=== PATIENT | female | born 1980 | race Caucasian/White ===

== ENCOUNTER 2016-12-28 15:04 | Observation (INO) | payer OTHER, BC ==
[2016-12-28] MEDS ORDERED: HYDROmorphone 1 MG/ML 1 ML SYRINGE IVP STA ×2 (15:26→16:51)
[2016-12-28] MEDS ORDERED: ONDANSETRON 4 MG/2 ML VIAL IVP STA (15:26)
[2016-12-28] MEDS ORDERED: SODIUM CHLORIDE 0.9% 500 ML IV STA (15:26)
[2016-12-28] MEDS: RX INFO: IV CONTRAST WAS GIVEN 1 EACH MISC MISCELLANE PRN ×2 (15:45→15:46)
[2016-12-28 16:03] LABS: Anisocytosis Slight; Basophils % (A) 0 %; CH 24.6; CHCM 30.6; Eosinophils # (A) 0.6 k/uL (0-0.7); Eosinophils % (A) 8 %; HCT 34.7 % (34.0-46.0); HDW 2.82; HGB 10.6 gm/dL (11.4-16.0); Hypochromasia Moderate; Luc # (Auto) 0.13; Luc % (Auto) 2; Lymphocytes # (A) 2.1 k/uL (1.0-4.8); Lymphocytes % (A) 26 %; MCH 24.6 pg (25.0-35.0); MCHC 30.5 g/dL (31.0-37.0); MCV 80.6 fL (80.0-100.0); Mean Platelet Volume 8.4; Monocytes # (A) 0.3 k/uL (0-1.0); Monocytes % (A) 4 %; Neutrophils # (A) 4.8 k/uL (1.3-7.7); Neutrophils % (A) 60 %; RDW 16.5 % (11.5-15.5); WBC 7.9 k/uL (3.8-10.6); WBC (Perox) 8.48
[2016-12-28 16:06] LABS: Appearance,Urine Cloudy (Clear); Bilirubin,Urine Negative (Negative); Glucose,Urine (UA) Negative (Negative); Ketones,Urine Negative (Negative); Leukocyte Esterase,Urine Negative (Negative); Mucus,Urine Few /hpf; Nitrite,Urine Negative (Negative); PH, Urine 5.5 (5.0-8.0); Particle Count 14486; Protein,Urine 1+ (Negative); RBC,Urine 2 /hpf (0-5); Specific Gravity,Urine 1.019 (1.001-1.035); Squamous Epithelial Cell,Urine 10 /hpf (0-4); UA Billing (MACRO vs. MICRO) MICRO; WBC,Urine 2 /hpf (0-5)
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
[2016-12-28 16:11] LABS: Partial Thromboplastin Time 21.9 sec (22.0-30.0); Prothrombin Time 10.2 sec (9.0-12.0)
[2016-12-28 16:14] LABS: ALT 20 U/L (9-52); AST 15 U/L (14-36); Alcohol <10 mg/dL; Alkaline Phosphatase 47 U/L (38-126); Anion Gap 11 mmol/L; Blood Urea Nitrogen 10 mg/dL (7-17); Calcium 8.7 mg/dL (8.4-10.2); Carbon Dioxide 24 mmol/L (22-30); Chloride 104 mmol/L (98-107); Glucose 93 mg/dL (74-99); Non-African American GFR(MDRD) >60 (>60 ml/min/1.73 sqM); Potassium 4.1 mmol/L (3.5-5.1); Sodium 139 mmol/L (137-145); Total Bilirubin 0.1 mg/dL (0.2-1.3)
[2016-12-28 16:28] LABS: Creatine Kinase 70 U/L (30-135)
[2016-12-28 16:40] LABS: Creatine Kinase MB <0.2 ng/mL (0.0-2.4); Troponin I <0.012 ng/mL (0.000-0.034)
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
[2016-12-28] MEDS ORDERED: SODIUM CHLORIDE 0.9% 1,000 ML IV ONE (17:45)
[2016-12-28] MEDS ORDERED: HYDROmorphone 1 MG/ML 1 ML SYRINGE IVP PRN (17:46)
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
--- NOTE | 2016-12-28 18:52 | XR ---
EXAMINATION TYPE: XR Hip Complete RT DATE OF EXAM: 12/28/2016 COMPARISON: NONE HISTORY: Hip pain TECHNIQUE: 2 views FINDINGS: I see no fracture nor dislocation. Hip joint space is fairly normal. Sacroiliac joint appea rs normal. IMPRESSION: Negative right hip exam
[2016-12-28] MEDS ORDERED: ONDANSETRON 4 MG/2 ML VIAL IVP PRN (20:04)
[2016-12-29 07:57] VITALS: BP 107/53; PULSE 64; RESP 16; TEMP 97.4
[2016-12-29 08:02] LABS: Basophils % (A) 0 %; CH 23.8; CHCM 28.9; Eosinophils # (A) 0.3 k/uL (0-0.7); Eosinophils % (A) 4 %; HCT 32.3 % (34.0-46.0); HGB 9.5 gm/dL (11.4-16.0); Hypochromasia Marked; Luc # (Auto) 0.18; Luc % (Auto) 2; Lymphocytes # (A) 2.1 k/uL (1.0-4.8); Lymphocytes % (A) 27 %; MCH 24.5 pg (25.0-35.0); MCHC 29.5 g/dL (31.0-37.0); MCV 82.8 fL (80.0-100.0); Mean Platelet Volume 7.5; Monocytes # (A) 0.4 k/uL (0-1.0); Monocytes % (A) 5 %; Neutrophils # (A) 4.9 k/uL (1.3-7.7); Neutrophils % (A) 62 %; RDW 15.6 % (11.5-15.5); WBC 7.9 k/uL (3.8-10.6)
[2016-12-29 08:35] LABS: ALT 23 U/L (9-52); AST 14 U/L (14-36); Alkaline Phosphatase 39 U/L (38-126); Anion Gap 9 mmol/L; Blood Urea Nitrogen 10 mg/dL (7-17); Calcium 8.5 mg/dL (8.4-10.2); Carbon Dioxide 22 mmol/L (22-30); Chloride 107 mmol/L (98-107); Glucose 81 mg/dL (74-99); Non-African American GFR(MDRD) >60 (>60 ml/min/1.73 sqM); Potassium 4.2 mmol/L (3.5-5.1); Sodium 138 mmol/L (137-145); Total Bilirubin 0.2 mg/dL (0.2-1.3)
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
== END 2016-12-29 10:40 | disposition home or self-care (01) ==
LOC: EC 15:04 → 3OBS 17:45
PROVIDERS: ADMIT Surgery; ATTEND Surgery
DX: R10.13 Epigastric pain (principal); R07.89 Other chest pain; M25.562 Pain in left knee; M62.830 Muscle spasm of back; M25.551 Pain in right hip; D64.9 Anemia, unspecified; R11.0 Nausea; V43.52XA Car driver injured in collision with other type car in traffic accident, initial encounter; F17.200 Nicotine dependence, unspecified, uncomplicated; Z88.8 Allergy status to other drugs, medicaments and biological substances; Z88.5 Allergy status to narcotic agent; Z82.49 Family history of ischemic heart disease and other diseases of the circulatory system; Z81.8 Family history of other mental and behavioral disorders; Z82.5 Family history of asthma and other chronic lower respiratory diseases
CPT/HCPCS: 99285; 96374; 96376 ×3; 96375; 36415; 86900; 86901; 80053 ×2; 82550; 82553; 83605; 84484; 85025 ×2; 85610; 85730; 86850; 81001; 81025; 80306; 80320; 73502; 71260; 74177; G0378 ×2; J2405; J1170; Q9967

== ENCOUNTER 2020-10-09 12:54 | Emergency (ER) | payer BC, OTHER ==
[2020-10-09 13:02] VITALS: BP 152/99; PULSE 74; RESP 20; TEMP 98.2
[2020-10-09] MEDS ORDERED: PROPARACAINE 0.5% OPHTH DROPS 15 ML BTL BOTH EYES STA (13:03)
[2020-10-09] MEDS ORDERED: FLUORESCEIN STRIPS 1 MG STRIP BOTH EYES ONE (13:03)
--- NOTE | 2020-10-09 13:20 | ED ---
General Adult HPI - General Chief complaint: Eye Problems Stated complaint: Eye scratch Time Seen by Provider: 10/09/20 13:03 Source: patient Mode of arrival: ambulatory Limitations: no limitations - History of Present Illness Initial comments: Dictation was produced using [employer] dictation software. please excuse any grammatical, word or spelling errors. Chief Complaint: 40-year-old male presents with eye pain History of Present Illness: 40-year-old female she presents with left lateral eye pain. She was just started on contact lenses recently. States that she was trying to take her contact out yesterday when all of a sudden she began having pain to the left upper lateral portion of the eye. States that her eye. To be slightly foggy. States that she has pain to the globe. She does have mild pain with movements of the eye. This is her second time using her contacts. She first using about 2 weeks ago. Denies any fevers, chills or night sweats. She does report photophobia The ROS documented in this emergency department record has been reviewed and confirmed by me. Those systems with pertinent positive or negative responses have been documented in the HPI. All other systems are other negative and/or noncontributory. PHYSICAL EXAM: General Impression: Alert and oriented x3, squinting of the left eye HEENT: Normocephalic atraumatic, extra-ocular movements intact, pupils equal and reactive to light bilaterally, mucous membranes moist. Cardiovascular: Heart regular rate and rhythm Chest: Able to complete full sentences, no retractions, no tachypnea Musculoskeletal: Pulses present and equal in all extremities, no peripheral edema Motor: no focal deficits noted Neurological: CN II-XII grossly intact, no focal motor or sensory deficits noted Skin: Intact with no visualized rashes Psych: Normal affect and mood ED course: 40-year-old female presents with left eye complaints. Vital signs upon arrival are within acceptable limits. Fluorescein testing shows diffuse uptake to the left superior scleral. Pupils are round. She did not report any significant improvement with proparacaine administration. Left eye is 20/200, right eye is 20/70. Patient does have flare but no obvious cell. She denies any improvement of her symptoms with proparacaine administration. No hypopyon or fluid in the anterior chamber. Phthisis cup with dental technologist on-call Dr. Arguello. He requests the patient be sent directly to his office . Patient discharged is agreeable to plan. She states she will go straight to his office for evaluation. - Related Data Home Medications Medication Instructions Recorded Confirmed Fluticasone Nasal [place] [Flonase 1 spray EA NOSTRIL DAILY PRN 12/28/16 12/28/16 Nasal [place]] Ibuprofen [Motrin] 600 mg PO Q6HR PRN 12/28/16 12/28/16 Loratadine [Claritin] 10 mg PO DAILY PRN 12/28/16 12/28/16 diphenhydrAMINE HCL [Benadryl] 50 mg PO DAILY PRN 12/28/16 12/28/16 Previous Rx's Medication Instructions Recorded Cyclobenzaprine [Flexeril] 10 mg PO BID PRN #20 tab 12/29/16 traMADol HCl [Ultram] 100 mg PO Q6HR PRN #25 tab 12/29/16 Allergies Allergy/AdvReac Type Severity Reaction Status Date / Time codeine AdvReac Nausea & Verified 10/09/20 13:01 Vomiting hydroxyzine [From Vistaril] AdvReac Hallucinati Verified 10/09/20 13:01 ons Review of Systems ROS Statement: Those systems with pertinent positive or pertinent negative responses have been documented in the HPI. ROS Other: All systems not noted in ROS Statement are negative. Past Medical History Additional Past Medical History / Comment(s): endometriosis, kidney stones History of Any Multi-Drug Resistant Organisms: None Reported Past Surgical History: Uterine Ablation Additional Past Surgical History / Comment(s): exp lap Past Anesthesia/Blood Transfusion Reactions: No Reported Reaction Past Psychological History: No Psychological Hx Reported Smoking Status: Current every day smoker Past Alcohol Use History: Occasional Past Drug Use History: None Reported - Past Family History Father Family Medical History: Congestive Heart Failure (CHF), COPD, Hypertension, Myocardial Infarction ([place]) Mother Family Medical History: Hypertension Additional Family Medical History / Comment(s): heart mur mur, KETCHIKAN Brother(s) Family Medical History: Hypertension Additional Family Medical History / Comment(s): depression Sister(s) History Unknown: Yes Son(s) Family Medical History: No Reported History General Exam Limitations: no limitations Course Vital Signs 10/09/20 12:57 Temperature 98.2 F Pulse Rate 74 Respiratory 20 Rate Blood Pressure 152/99 O2 Sat by Pulse 99 Oximetry Disposition Clinical Impression: Eye pain Disposition: OTHER INSTITUTION NOT DEFINED Condition: Fair Instructions (If sedation given, give patient instructions): Eye Pain (ED) Additional Instructions: Go directly to Dr. Arguello's office for evaluation. Referrals: Zahra Arguello MD [STAFF PHYSICIAN] - As Soon As Possible - Out of Hospital Transfer - Req. Specs Out of Hospital Transfer - Requested Specifics: Other Non-Acute (Dr. Arguello's office)
== END 2020-10-09 14:10 | disposition other institution (70) ==
LOC: EC 12:54
DX: H57.12 Ocular pain, left eye (principal); F17.200 Nicotine dependence, unspecified, uncomplicated; Z87.442 Personal history of urinary calculi; Z79.1 Long term (current) use of non-steroidal anti-inflammatories (NSAID); Z88.5 Allergy status to narcotic agent
CPT/HCPCS: 99284

== ENCOUNTER → 2021-09-23 | Outpatient (CLI) | payer OTHER ==
--- NOTE | 2021-09-23 10:06 | CT ---
EXAMINATION TYPE: CT foot LT wo con DATE OF EXAM: 09/23/2021 COMPARISON: None available HISTORY: Lt lateral foot pain and pulling CT DLP: 199 mGycm Automated exposure control for dose reduction was used. TECHNIQUE: Multiplanar CT scan of the left foot without IV contrast administration. 3-D reconstructio n images were generated on an independent workstation and reviewed. FINDINGS: Small sharp inferior calcaneal spur with tiny posterior calcaneal enthesophyte at the insertion of th e Achilles tendon. Mild degenerative changes of the medial aspect of the third tarsometatarsal articu lation. No definite acute fracture line identified. Preserved ankle mortise with a smooth talar dome. No siza ble ankle joint effusion. No other significant bony or articular abnormality identified. IMPRESSION: No definite acute fracture or dislocation identified. Incidental findings as described above.
== END | disposition home or self-care (01) ==
LOC: RADCTMAIN 06:50
PROVIDERS: ATTEND Family Medicine
DX: M77.32 Calcaneal spur, left foot (principal); R20.2 Paresthesia of skin

== ENCOUNTER → 2021-10-22 | Outpatient (CLI) | payer OTHER ==
--- NOTE | 2021-10-23 05:10 | MR ---
EXAMINATION TYPE: MR foot LT wo con DATE OF EXAM: 10/22/2021 COMPARISON: None HISTORY: INJ CUTANEOUS SENSORY NERVE AT LEFT ANKLE AND FOOT LEVEL Multiplanar multiecho imaging of the left foot without contrast. The metatarsals are intact. No fracture seen. Tarsal bones appear intact. The toes appear intact. The bones of the hindfoot appear intact. Ankle mortise is anatomic. Achilles tendon appears normal. The medial and lateral flexor tendons of the foot appear intact. Collateral ligaments of the ankle appear intact. No pathologic fluid collection. IMPRESSION: Negative MR scan of the left foot.
== END | disposition home or self-care (01) ==
LOC: RADMRIMAIN 05:55
PROVIDERS: ATTEND Podiatrist
DX: S94.32XA Injury of cutaneous sensory nerve at ankle and foot level, left leg, initial encounter (principal); X58.XXXA Exposure to other specified factors, initial encounter

== ENCOUNTER → 2021-12-08 | Outpatient (CLI) | payer OTHER ==
--- NOTE | 2021-12-09 20:49 | MR ---
EXAMINATION TYPE: MR lumbar spine wo con DATE OF EXAM: 12/08/2021 COMPARISON: None HISTORY: M 47.817 CONTRAST: 0 mL intravenous Gadavist. TECHNIQUE: Multiplanar, multisequence images of the lumbar spine were acquired. FINDINGS: L5-S1: Broad-based left paracentral disc bulge is present with moderate anterior thecal sac compressi on. No AP spinal canal stenosis is present. Disc desiccation is present. No foraminal stenosis. L4-L5: No significant disc bulge or disc herniation. No spinal canal stenosis. No foraminal stenosi s. L3-L4: No significant disc bulge or disc herniation. No spinal canal stenosis. No foraminal stenosi s. L2-L3: No significant disc bulge or disc herniation. No spinal canal stenosis. No foraminal stenosi s. L1-L2: No significant disc bulge or disc herniation. No spinal canal stenosis. No foraminal stenosi s. T12-L1: No significant disc bulge or disc herniation. No spinal canal stenosis. No foraminal stenos is. Disc hydration normals are otherwise normal. Vertebral body heights are preserved. IMPRESSION: 1. Broad-based left paracentral disc herniation L5-S1 with moderate anterior thecal sac compression.
== END | disposition home or self-care (01) ==
LOC: RADMRIMAIN 11:51
PROVIDERS: ATTEND Physical Medicine & Rehabilitation
DX: M51.27 Other intervertebral disc displacement, lumbosacral region (principal)
CPT/HCPCS: 72148

== ENCOUNTER → 2022-08-12 | Outpatient (CLI) | payer OTHER ==
--- NOTE | 2022-08-12 10:23 | MR ---
EXAMINATION TYPE: MR knee RT wo con DATE OF EXAM: 08/12/2022 COMPARISON: None HISTORY: Right knee pain. TECHNIQUE: Multiplanar, multisequence imaging of the right knee is performed without IV contrast. FINDINGS: MEDIAL MENISCUS: There is linear internal signal within the posterior horn of the medial meniscus. Th ere is no definite articular extension. LATERAL MENISCUS: There is linear internal signal posterior horn with no definite articular extension . CRUCIATE LIGAMENTS: The anterior and posterior cruciate ligaments are intact and unremarkable. COLLATERAL LIGAMENTS: The medial collateral ligament and lateral collateral ligament complex are inta ct and unremarkable. EXTENSOR MECHANISM: Visualized quadriceps and patellar tendons are intact. EFFUSION: No significant suprapatellar joint effusion. POPLITEAL CYST: No popliteal/lozada cyst. TRICOMPARTMENT SPACES: Joint space is preserved and no evidence of erosive change CARTILAGE: Normal BONE MARROW SIGNAL: No focal abnormal marrow signal is appreciated. IMPRESSION: 1. There is linear intrinsic signal within the posterior horn of the medial and lateral meniscus comp atible with degenerative signal alteration. There is no articular extension to suggest tear. 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 2. No evidence of ligamentous tear
== END | disposition home or self-care (01) ==
LOC: RADMRIMAIN 08:50
PROVIDERS: ATTEND Orthopaedic Surgery Sports Medicine
DX: M70.51 Other bursitis of knee, right knee (principal); M76.31 Iliotibial band syndrome, right leg; Z98.890 Other specified postprocedural states

== ENCOUNTER → 2023-12-26 | Outpatient (CLI) | payer OTHER ==
--- NOTE | 2023-12-31 20:15 | MM ---
Reason for Exam: Screening (asymptomatic). Baseline mammogram. Indicated Problems: Non-bloody discharge of both sides for 21 Year(s). Patient History: Menarche at age 14. First Full-Term at age 22. Patient has history of breast feeding. Patient used Hormonal Contraceptives for 10 years. Maternal grandmother had breast cancer at or over age 50. Mother had breast cancer at or over age 50. Risk Values: Luma 5 year model risk: 1.3%. NCI Lifetime model risk: 18.0%. Prior Study Comparison: Patient's first Mammogram. Tissue Density: The breasts are heterogeneously dense, which may obscure small masses. Findings: Analyzed By CAD. The pattern is symmetrical. Some nodularity is present within the right breast. No individual nodules more suspicious than another.No suspicious groups of microcalcifications, spiculated or lobular masses, architectural distortion or other secondary signs of malignancy are mammographically apparent. Overall Assessment: Benign, BI-RAD 2 Management: Screening Mammogram of both breasts in 1 year. A negative mammogram report should not preclude additional follow up of suspicious palpable abnormalities. Patient should continue monthly self breast exam. A clinical breast exam by your physician is recommended on an annual basis and results should be correlated with mammographic findings. Note on Luma scores and lifetime risk: 1. A Luma score greater than 3% is considered moderate risk. If this is the case, consider specialist referral to assess eligibility for a risk reducing agent. 2. If overall lifetime risk for the development of breast cancer is 20% or higher, the patient may qualify for future screening with alternating mammogram and breast MRI. [facility], , 12/31/2023 8:12 PM. Electronically signed and approved by: Perez Rizzo D.O. Radiologis
== END | disposition home or self-care (01) ==
LOC: RADMAMWWP 16:09
PROVIDERS: ATTEND Nurse Practitioner Family
DX: Z12.31 Encounter for screening mammogram for malignant neoplasm of breast
CPT/HCPCS: 77063; 77067